=== PATIENT | male | born 1960 | race Caucasian/White ===

== ENCOUNTER → 2019-08-14 | Outpatient (CLI) | payer BC ==
--- NOTE | 2019-08-14 11:57 | XR ---
EXAMINATION TYPE: XR KUB DATE OF EXAM: 08/14/2019 11:23 AM CLINICAL HISTORY: Renal calculi and abdominal pain TECHNIQUE: Single supine KUB image of the abdomen is obtained. COMPARISON: None. FINDINGS: There is a 4 mm calculus overlying the left psoas shadow at the L4 vertebral body level jus t inferior to the L4 left transverse process. This likely relates to a ureteral calculus although cou ld relate to a phlebolith in the gonadal vein. Multiple phleboliths are seen within the pelvis. No ca lculi are seen radiographically overlying the renal shadows. Osseous structures demonstrate mild arth ropathy of the right hip and postsurgical arthroplasty in the left hip. IMPRESSION: Probable 4 mm left midureteral calculus versus less likely phlebolith at the level of L4.
== END | disposition home or self-care (01) ==
LOC: RADXRMAIN 10:55
PROVIDERS: ATTEND Urology
DX: N20.1 Calculus of ureter (principal)
CPT/HCPCS: 74018